=== PATIENT | male | born 2000 | race Caucasian/White ===

== ENCOUNTER 2019-09-17 21:14 | Emergency (ER) | payer OTHER, MEDICAID, SELFPAY ==
[2019-09-17 21:21] VITALS: BP 125/69; PULSE 92; RESP 17; TEMP 36.9; O2SAT 99; BMI 23.1
--- NOTE | 2019-09-17 22:55 | ED.ANIMALBIT ---
HPI - Animal Bite General Chief Complaint: Animal Bite Stated Complaint: states attacked by a bat while hiking Time Seen by Provider: 09/17/19 21:31 Source: patient Mode of arrival: Family Vehicle Limitations: no limitations History of Present Illness HPI narrative: 19-year-old male nonsmoker with noncontributory medical history presents to the emergency department at the suggestion of his primary care provider after he was allegedly attacked by a bat. Patient was hiking in the dark and using his cell phone as a light source when a back came down and flu near the phone and on his right hand, he should away and then friend on a trail and followed him and did the same on his left hand. He did not feel it bite him but it certainly landed on his hand, he is here for rabies shots MD complaint: animal bite Onset (ago): hour(s) Animal: bat Mechanism: bite Location - Extremities: Right: hand Associated symptoms: none Related Data Allergies Allergy/AdvReac Type Severity Reaction Status Date / Time No Known Drug Allergies Allergy Verified 09/17/19 21:29 Review of Systems Constitutional Constitutional: Denies chills, Denies fatigue, Denies fever(s), Denies frequent falls, Denies lethargy and Denies weakness Eyes Eyes: Denies change in vision, Denies eye discharge, Denies irritation and Denies loss of vision ENT Ears, Nose, Mouth, and Throat: Denies change in voice, Denies dizziness, Denies neck pain, Denies sore throat and Denies throat swelling Cardiovascular Cardiovascular: Denies chest pain, Denies irregular heart rhythm, Denies lightheadedness, Denies palpitations, Denies dyspnea, Denies dyspnea on exertion and Denies orthopnea Respiratory Respiratory: Denies cough, Denies dyspnea, Denies dyspnea on exertion and Denies wheezing Gastrointestinal Gastrointestinal: Denies abdominal pain, Denies change in bowel habits, Denies diarrhea, Denies nausea and Denies vomiting Genitourinary Genitourinary: Denies hematuria, Denies flank pain, Denies urinary incontinence and Denies urinary urgency Musculoskeletal Musculoskeletal: Denies back pain, Denies muscle weakness, Denies neck pain, Denies numbness and Denies tingling Integumentary/Breasts Skin/Breast: Denies pruritus, Denies erythema, Denies rash and Denies wounds Neurologic Neurologic: Denies behavioral changes, Denies confusion, Denies dizziness, Denies frequent falls, Denies loss of vision, Denies numbness, Denies tingling and Denies weakness Psychiatric Psychiatric: Denies anxiety, Denies behavioral changes, Denies confusion, Denies depression, Denies homicidal ideation and Denies suicidal ideation Endocrine Endocrine: Denies fatigue, Denies flushing and Denies palpitations Hematologic/Lymphatic Hematologic/Lymphatic: Denies easy bruising Allergic/Immunologic Allergic/Immunologic: Denies urticaria, Denies throat swelling and Denies wheezing Patient History Social History Smoking Status: Never smoker alcohol intake frequency: a few times a month Substance Use Type: marijuana Exam Narrative Exam Narrative: GEN: AOx3 and in mild distress EYES: Pupils are equal, round, and reactive to light and accommodation. Extraoccular muscles are intact bilaterally. There is no subconjunctival hemorrhage or exudate. CHEST: Lungs are clear to auscultation bilaterally and free of wheezes, rales, or rhonchi. Heart rate is regular rhythm, there are no murmurs, clicks, rubs, or gallops. There is no chest wall tenderness. ABD: Abdomen is soft and nontender. There is no guarding or rebound. Bowel sounds are normal in all 4 quadrants. There is no mass or organomegaly. EXT: Full painless ROM of all extremities with no loss of sensation or strength. SKIN: Warm, pink, and dry. No erythema or rash Initial Vital Signs Initial Vital Signs: Vital Signs Temperature 98.5 F 09/17/19 21:21 Pulse Rate 92 H 09/17/19 21:21 Respiratory Rate 17 09/17/19 21:21 Blood Pressure 125/69 09/17/19 21:21 Pulse Oximetry 99 09/17/19 21:21 Course Orders Ordered: Discontinued Medications Rabies Immune Globulin (Hyperrab) 1,724 unit 20 unit/kg (1724 unit) IM NOW ONE Stop: 09/17/19 23:14 Last Admin: 09/18/19 00:44 Dose: 1,724 unit Documented by: MASHA Rabies Vaccine (Rabavert) 2.5 units IM .ONCE ONE Stop: 09/17/19 23:14 Last Admin: 09/18/19 00:47 Dose: 2.5 units Documented by: MASHA Vital Signs Vital signs: Vital Signs - 8 hr 09/18/19 01:42 Temperature 98.2 F Pulse Rate 64 Respiratory Rate 14 Blood Pressure 136/68 Pulse Oximetry 98 Discharge Plan Departure Patient Disposition: Home Clinical Impression: Bite by animal Discharge Date/Time: 09/18/19 01:43 Instructions: Animal Bites Activity Restrictions/Additional Instructions: *You have been diagnosed with [ bat bite, possible rabies exposure ] *What to do: *You will need multiple additional shots Day 3 WednesdaySeptember 20 Day 7 WednesdaySeptember 24 Day 14 WednesdayOctober 01 *Follow up with your primary care provider in 2-3 days, call for an appointment. Let them know you were seen in the Emergency Department and that we ask that you be seen in follow up *Return to ER if you should have any new, worsening or concerning symptoms
[2019-09-18] MEDS: RABIES IMMUNE GLOBULIN 300 UNIT/ML 5 ML VIAL 1724 UNIT IM (00:44)
[2019-09-18] MEDS: RABIES VACCINE (RABAVERT) 2.5 UNITS SYRINGE IM (00:47)
--- NOTE | 2019-09-18 00:58 | PC.NURSE ---
Rabies prophylaxis delayed as pharmacy had to be called into dispense medications. 6ml Immuno-globulin given per pharmacy recommendation IM in divided doses: 2ml in L and R gluteus medius; 2ml in right vastus lateralus. Pt had contact with bat but no visible bite.
[2019-09-18 01:42] VITALS: BP 136/68; PULSE 64; RESP 14; TEMP 36.8; O2SAT 98
== END 2019-09-18 01:43 | disposition home or self-care (01) ==
PROVIDERS: Emergency Provider Emergency Medicine; Family Provider Chiropractor
DX: S61.452A Open bite of left hand, initial encounter (principal); W64.XXXA Exposure to other animate mechanical forces, initial encounter; Z20.3 Contact with and (suspected) exposure to rabies; Z23 Encounter for immunization
CPT/HCPCS: 90375; 90471; 90675; 96372; 99282; 99283

== ENCOUNTER 2019-09-20 13:53 | Emergency (ER) | payer OTHER, MEDICAID, SELFPAY ==
[2019-09-20 14:01] VITALS: BP 115/79; PULSE 60; RESP 14; TEMP 36.3; O2SAT 100
--- NOTE | 2019-09-20 14:25 | ED.RECABL ---
HPI - Recheck/Abnormal Lab/Rx <KRISTEN Guajardo - Last Filed: 09/20/19 14:44> General Chief Complaint: Recheck/Abnormal Lab/Rx Stated Complaint: coming back for second rabies shot Time Seen by Provider: 09/20/19 14:03 Source: patient Mode of arrival: Ambulatory History of Present Illness HPI narrative: 19-year-old male healthy male presents to the emergency department for his Day 3 rabies vaccination in this series that he started on 09/17/2019 following a bat encounter. Patient reports he was hiking in the dark and using his cell phone as a light source when a bat came down and flew near his phone and landed on his right hand, he pushed the bat away ran, the bat continued to follow him and landed on his hand again, he ran down the trail again and the bat followed him and did the same on his left hand. He did not feel it bite him but it certainly landed on his hand. 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 He denies any symptoms at this time, he denies chest pain, shortness of breath, memory problems, difficulty swallowing, sore throat, nausea, vomiting, diarrhea, or other concerns. Related Data Allergies Allergy/AdvReac Type Severity Reaction Status Date / Time No Known Drug Allergies Allergy Verified 09/17/19 21:29 Review of Systems <KRISTEN Guajardo - Last Filed: 09/20/19 14:44> Review of Systems Narrative: REVIEW OF SYSTEMS: GENERAL: Denies fever or chills. HENT: No head trauma, hearing loss or sore throat. EYES: No loss of vision, double vision, eye pain, or irritation. CARDIOVASCULAR: No chest pain or syncope. RESPIRATORY: No shortness of breath or cough. GASTROINTESTINAL: No nausea, vomiting, diarrhea, or constipation. GENITOURINARY: No flank pain or dysuria. MUSCULOSKELETAL: No pain, weakness, or deformities. INTEGUMENTARY: No rash, lesions, or pruritus. NEURO: No numbness, tingling, memory loss, or confusion. PSYCH: No behavior or mood changes. Patient History <KRISTEN Guajardo - Last Filed: 09/20/19 14:44> Medical History No significant medical problems (Acute) Social History Smoking Status: Never smoker alcohol intake frequency: a few times a month Substance Use Type: marijuana Exam <KRISTEN Guajardo - Last Filed: 09/20/19 14:44> Narrative Exam Narrative: PHYSICAL EXAMINATION: GENERAL: Well groomed, alert, and cooperative. Answers questions promptly and appropriately. Vital signs noted. HENT: Normocephalic, atraumatic. Ear canals patent. Oral mucosa is pink and moist. EYES: Conjunctiva pink, sclera white, no periorbital swelling. CHEST: Normal to inspection and without deformities. CARDIOVASCULAR: Regular rate. RESPIRATORY: Normal respiratory rate, trachea midline, airway patent. No stridor, nasal flaring or accessory muscle use. GASTROINTESTINAL: Bowel sounds normoactive. Abdomen is soft and non-tender. No organomegaly. MUSCULOSKELETAL: Normal gait and coordination. Equal tone and mass bilaterally. EXTREMITIES: CMS intact. Moves all extremities. SKIN: Warm, dry, soft, appropriate color for ethnicity. No lesions, rashes, or wounds. NEURO: Alert and Oriented X 3. Good coordination. No ataxia, or sensory deficits, or cognitive issues. PSYCH: Appropriate affect and mood. Initial Vital Signs Initial Vital Signs: Vital Signs Temperature 97.4 F L 09/20/19 14:01 Pulse Rate 60 09/20/19 14:01 Respiratory Rate 14 09/20/19 14:01 Blood Pressure 115/79 09/20/19 14:01 Pulse Oximetry 100 09/20/19 14:01 <Terry Freire DO - Last Filed: 09/20/19 15:06> Initial Vital Signs Initial Vital Signs: Vital Signs Temperature 97.4 F L 09/20/19 14:01 Pulse Rate 60 09/20/19 14:01 Respiratory Rate 14 09/20/19 14:01 Blood Pressure 115/79 09/20/19 14:01 Pulse Oximetry 100 09/20/19 14:01 Course <KRISTEN Guajardo - Last Filed: 09/20/19 14:44> Course Course Narrative: Patient was given rabies vaccination, no reaction during emergency department stay. He was instructed to have another vaccination on day 7 and day 14. Patient understood and agreed with plan of care Orders Ordered: Discontinued Medications Rabies Vaccine (Rabavert) 2.5 units IM .ONCE ONE Stop: 09/20/19 14:15 Last Admin: 09/20/19 14:38 Dose: 2.5 units Documented by: FELISA Consultations Consultation #1: Patient staffed with Dr. Freire. Vital Signs Vital signs: Vital Signs - 8 hr 09/20/19 14:01 09/20/19 14:58 Temperature 97.4 F L Pulse Rate 60 60 Respiratory Rate 14 16 Blood Pressure 115/79 117/60 Pulse Oximetry 100 98 <Terry Freire DO - Last Filed: 09/20/19 15:06> Orders Ordered: Discontinued Medications Rabies Vaccine (Rabavert) 2.5 units IM .ONCE ONE Stop: 09/20/19 14:15 Last Admin: 09/20/19 14:38 Dose: 2.5 units Documented by: FELISA Vital Signs Vital signs: Vital Signs - 8 hr 09/20/19 14:01 09/20/19 14:58 Temperature 97.4 F L Pulse Rate 60 60 Respiratory Rate 14 16 Blood Pressure 115/79 117/60 Pulse Oximetry 100 98 [facility] - Recheck/Abnormal Lab/Rx <KRISTEN Guajardo - Last Filed: 09/20/19 14:44> Medical Records Attestation: I reviewed the patient's medical records. Lab Data Attestation: I reviewed the patient's lab results. [facility] Narrative Medical decision making narrative: 19-year-old healthy male presents emergency department for 2nd rabies vaccination on day 3 from back in counter. He does not present with any symptoms. He was given 2nd rabies vaccination and instructed follow up for continued vaccinations on day 7 and day 14. Return precautions given. Discharge Plan Departure Patient Disposition: Home Clinical Impression: Bite by animal Discharge Date/Time: 09/20/19 14:55 Instructions: DI for Rabies Vaccine Activity Restrictions/Additional Instructions: Thank you for entrusting me with your care today. As discussed, you received the 2nd dose of rabies vaccine. You will need another vaccine on Day 7 (09/24/2019) and Day 14 (10/01/2019). You may presents to the walk-in clinic for these vaccination. Please seek emergent care if any symptoms develop such as chest pain, memory issues, excessive drooling, vision change, severe headache, or any other concerns. <Terry Freire, DO - Last Filed: 09/20/19 15:06> Sign Out Provider Sign Out Attestation: Dr Freire Co-Sign Statement: I was available for consultation during this patient's emergency department visit. This chart is signed by myself for administrative purposes only. I did not have direct contact with this patient during this visit. They were seen independently by the APC.
[2019-09-20] MEDS: RABIES VACCINE (RABAVERT) 2.5 UNITS SYRINGE IM (14:38)
--- NOTE | 2019-09-20 14:54 | PC.NURSE ---
Patient with no sx and no c/o. 2nd dose of rabies vaccine given with VIS sheet. Patient discharged to f/u in 7 days.
[2019-09-20 14:58] VITALS: BP 117/60; PULSE 60; RESP 16; O2SAT 98
== END 2019-09-20 14:55 | disposition home or self-care (01) ==
PROVIDERS: Emergency Provider Nurse Practitioner; Family Provider Chiropractor
DX: Z20.3 Contact with and (suspected) exposure to rabies (principal)
CPT/HCPCS: 90471; 90675; 99282; 99283

== ENCOUNTER 2019-09-24 15:09 | Emergency (ER) | payer OTHER, MEDICAID, SELFPAY ==
[2019-09-24] MEDS: RABIES VACCINE (RABAVERT) 2.5 UNITS SYRINGE IM (17:10)
--- NOTE | 2019-09-24 18:57 | ED_ITS ---
HPI - Recheck/Abnormal Lab/Rx <KAUSHIK Fink - Last Filed: 09/24/19 19:04> General Chief Complaint: Recheck/Abnormal Lab/Rx Stated Complaint: Follow up 3rd Rabbies shot Time Seen by Provider: 09/24/19 15:24 Source: patient Mode of arrival: Ambulatory Limitations: no limitations History of Present Illness HPI narrative: The patient is a 19-year-old male with history of bat bite who presents a chief complaint of needing his 3rd rabies vaccination he states that he was hiking and attacked by a bat. He states that he received his 1st vaccination on the , 2nd on the and needs his last vaccination on the . He denies any fevers nausea vomiting or diarrhea. He denies any signs of infection. He states he would like to get his shot and leave. Related Data Allergies Allergy/AdvReac Type Severity Reaction Status Date / Time No Known Drug Allergies Allergy Verified 09/17/19 21:29 Review of Systems <KAUSHIK Fink - Last Filed: 09/24/19 19:04> Review of Systems Narrative: GENERAL: Denies chills, fatigue, malaise, fever, sweats. HEENT: Denies sinus pain, ear pain, sore throat, difficulty swallowing, dizziness. RESPIRATORY: Denies dyspnea, cough, wheezing, hemoptysis, sputum. CARDIOVASCULAR: Denies chest pain, palpitations, orthopnea, edema, GASTROINTESTINAL: Denies nausea, vomiting, abdominal pain, diarrhea, constipation, melena. : Denies dysuria, frequency, incontinence, hematuria, urinary retention. MUSCULOSKELETAL: denies weakness, joint pain, or bony pain SKIN: See HPI NEUROLOGIC: Denies weakness, headache, numbness, change in speech, confusion, seizures, incoordination. PSYCHIATRIC: No concerning psychosocial issues. 12 point review of systems is negative except for those stated above Patient History <KAUSHIK Fink - Last Filed: 09/24/19 19:04> Social History Smoking Status: Never smoker alcohol intake frequency: a few times a month Substance Use Type: marijuana Exam <KAUSHIK Fink - Last Filed: 09/24/19 19:04> Narrative Exam Narrative: GENERAL: This is a well-nourished, well-developed patient, in no acute distress HEAD: Atraumatic. Normocephalic. No temporal or scalp tenderness. EYES: Pupils equal round and reactive. Extraocular motions intact. No scleral icterus. No injection or drainage. ENT: Nose without bleeding, purulent drainage or septal hematoma. Throat without erythema, tonsillar hypertrophy or exudate. Uvula midline. Airway patent. NECK: Trachea midline. No JVD or lymphadenopathy. Supple, nontender, no meningeal signs. CARDIOVASCULAR: Regular rate and rhythm RESPIRATORY: No cough. No increased respiratory effort. No accessory muscle use. No stridor. EXTREMITIES: No clubbing, cyanosis, or edema. No joint tenderness, effusion, or edema noted. BACK: Nontender without deformity or crepitance. No flank tenderness. NEURO: AOx3. SKIN: No rash or erythema. Course <KAUSHIK Fink - Last Filed: 09/24/19 19:04> Orders Ordered: Discontinued Medications Rabies Vaccine (Rabavert) 2.5 units IM .ONCE ONE Stop: 09/24/19 15:30 Last Admin: 09/24/19 17:10 Dose: 2.5 units Documented by: DAWNA <Nba Hernandez DO - Last Filed: 09/24/19 19:24> Orders Ordered: Discontinued Medications Rabies Vaccine (Rabavert) 2.5 units IM .ONCE ONE Stop: 09/24/19 15:30 Last Admin: 09/24/19 17:10 Dose: 2.5 units Documented by: DAWNA [facility] - Recheck/Abnormal Lab/Rx <KAUSHIK Fink - Last Filed: 09/24/19 19:04> [facility] Narrative Medical decision making narrative: The patient is a eye 19-year-old male presenting for chief complaint of needing rabies vaccination this was given tolerated well. I discussed that he still needs his final vaccination on 10/01. Discussed coming back to the emergency department for any acute concerns. Patient has no questions or concerns upon discharge and states understanding of return precautions as well as follow-up care. Discharge Plan Departure Patient Disposition: Home Clinical Impression: Encounter for repeat administration of rabies vaccination Discharge Date/Time: 09/24/19 17:54 Instructions: DI for Rabies Vaccine Activity Restrictions/Additional Instructions: Please follow up in 1 week for your final rabies vaccination. Please come back to the emergency department for any acute concerns. Please follow up on day 10/01/2019 for your final rabies shot
== END 2019-09-24 17:54 | disposition home or self-care (01) ==
PROVIDERS: Emergency Provider Nurse Practitioner Family; Family Provider Chiropractor
DX: Z23 Encounter for immunization (principal); T14.8XXA Other injury of unspecified body region, initial encounter; W64.XXXA Exposure to other animate mechanical forces, initial encounter; Y93.01 Activity, walking, marching and hiking
CPT/HCPCS: 90471; 90675; 99282